=== PATIENT | female | born 2000 | race Caucasian/White ===

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

== ENCOUNTER 2023-05-05 07:39 | Inpatient (IN) | payer BC ==
[2023-05-05] MEDS ORDERED: CARBOPROST TROMETHAMINE 250 MCG/ML 1 ML AMP IM PRN (08:11)
[2023-05-05] MEDS ORDERED: OXYTOCIN 10 UNIT/ML 1 ML VIAL IM PRN (08:11)
[2023-05-05] MEDS ORDERED: METHYLERGONOVINE 0.2 MG/ML 1 ML AMP IM PRN (08:11)
[2023-05-05] MEDS ORDERED: LIDOCAINE 0.5% (PF) 5 MG/ML (50 ML SDV) SQ PRN (08:11)
[2023-05-05] MEDS ORDERED: TRANEXAMIC ACID IN NACL,ISO-OS 1,000 MG in EMPTY BAG 1 BAG IV PRN (08:11)
[2023-05-05] MEDS ORDERED: TERBUTALINE 1 MG/ML VIAL SQ PRN (08:11)
[2023-05-05] MEDS ORDERED: miSOPROStoL 200 MCG TAB PO PRN (08:11)
[2023-05-05] MEDS ORDERED: OXYTOCIN 30 UNITS/500 ML NS 30 UNIT in SALINE 1 500ML.BAG IV SCH ×2 (08:15→12:00)
[2023-05-05] MEDS ORDERED: LACTATED RINGERS 1,000 ML IV SCH (08:15)
[2023-05-05 08:52] LABS: Basophils % (A) 0 %; Eosinophils # (A) 0.1 k/uL (0-0.7); Eosinophils % (A) 1 %; HGB 12.8 gm/dL (11.4-16.0); Lymphocytes # (A) 1.9 k/uL (1.0-4.8); Lymphocytes % (A) 16 %; MCHC 33.6 g/dL (31.0-37.0); MCV 92.3 fL (80.0-100.0); Mean Platelet Volume 14.7; Monocytes # (A) 0.4 k/uL (0-1.0); Monocytes % (A) 3 %; Neutrophils % (A) 78 %; RBC 4.12 m/uL (3.80-5.40); RDW 13.4 % (11.5-15.5); WBC 11.5 k/uL (3.8-10.6)
[2023-05-05 09:11] LABS: ALT 15 U/L (4-34); AST 24 U/L (14-36); African American GFR (CKD) >90 (>60 ml/min/1.73 sqM); Blood Urea Nitrogen 9 mg/dL (7-17); LDH 192 U/L (120-246); Non-African American GFR(CKD) >90 (>60 ml/min/1.73 sqM); Uric Acid 4.3 mg/dL (3.7-7.4)
[2023-05-05 09:12] LABS: Appearance,Urine Clear (Clear); Bacteria,Urine Rare /hpf; Bilirubin,Urine Negative (Negative); Blood,Urine Large (Negative); Color,Urine Yellow; Glucose,Urine (UA) Negative (Negative); Ketones,Urine Negative (Negative); Leukocyte Esterase,Urine Trace (Negative); Mucus,Urine Rare /hpf; Nitrite,Urine Negative (Negative); PH, Urine 7.5 (5.0-8.0); Protein,Urine Trace (Negative); RBC,Urine 2 /hpf (0-5); Specific Gravity,Urine 1.016 (1.001-1.035); Squamous Epithelial Cell,Urine 2 /hpf (0-4); Urobilinogen,Urine <2.0 mg/dL (<2.0); WBC,Urine 3 /hpf (0-5)
[2023-05-05 09:27] LABS: Creatinine,Urine Random 91.4 mg/dL; Protein/Creatinine Ratio,Urine 0.164
[2023-05-05 09:42] LABS: Platelet Count 78 k/uL (150-450); RBC Morphology Normal
[2023-05-05 09:43] LABS: Large Platelets Present
[2023-05-05] MEDS ORDERED: NALBUPHINE 10 MG/ML (10 ML MDV) IV PRN (09:51)
[2023-05-05] MEDS ORDERED: SIMETHICONE 80 MG CHEWABLE PO PRN (11:52)
[2023-05-05] MEDS ORDERED: LANOLIN CREAM 5 GM TUBE TOPICAL PRN (11:52)
[2023-05-05] MEDS ORDERED: diphenhydrAMINE 25 MG CAP PO PRN (11:52)
[2023-05-05] MEDS ORDERED: diphenhydrAMINE 50 MG/ML 1 ML VIAL IVP PRN ×2 (11:52)
[2023-05-05] MEDS ORDERED: ACETAMINOPHEN ORAL SUSP 160 MG/5 ML CUP PO PRN (11:52)
[2023-05-05] MEDS ORDERED: diphenhydrAMINE 50 MG CAP PO PRN (11:52)
[2023-05-05] MEDS ORDERED: BENZOCAINE/MENTHOL SPRAY 1 GM/SPRAY AEROSOL TOPICAL PRN (11:52)
[2023-05-05] MEDS ORDERED: ZOLPIDEM 5 MG TAB PO PRN (11:52)
[2023-05-05] MEDS ORDERED: HYDROCORTISONE 2.5% RECTAL CREAM 30 GM TUBE RECTAL PRN (11:52)
[2023-05-05] MEDS: IBUPROFEN 600 MG TAB PO PRN ×2 (12:19→18:18)
--- NOTE | 2023-05-05 13:14 | P.HPOB ---
History of Present Illness H&P Date: 05/05/23 Chief Complaint: Contractions This is a 22-year-old female 2 para 0 with an estimated date of confinement of 05/07/2023, estimated gestational age of 39-5/7 weeks, who presented to labor and delivery with complaints of contractions that began a few hours prior to admission. She denies any rupture of membranes. She transferred her care to [facility] at approximately 32 weeks. She was receiving care at [facility] in [place] and had no problems with her care up until this point. She was using marijuana for her anxiety and depress ion and did stop using in approximately 2 weeks ago. labs: Blood type-A+ Antibody screen-negative Hepatitis B surface antigen-negative Hepatitis C-negative HIV-nonreactive RPR-nonreactive Rubella-immune Pap and cultures-negative Urine drug screen-positive for THC One hour Glucola-115, platelet count at this time was 126,000 NIPT-normal GBS-negative Obstetrical history: . History of 1 termination of . Gynecologic history: No history of sexual transmitted diseases. Social history: She is single. She is unemployed. Review of Systems Constitutional: Denies chills, Denies fever Eyes: denies blurred vision, denies pain Ears, nose, mouth and throat: Denies headache, Denies sore throat Cardiovascular: Denies chest pain, Denies shortness of breath Respiratory: Denies cough Gastrointestinal: Reports abdominal pain (Contractions) Genitourinary: Reports pelvic pain, Reports Musculoskeletal: Reports low back pain Integumentary: Denies pruritus, Denies rash Neurological: Denies numbness, Denies weakness Psychiatric: Reports anxiety, Reports depression Past Medical History Past Medical History: Asthma, GERD/Reflux Additional Past Medical History / Comment(s): 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 History of Any Multi-Drug Resistant Organisms: None Reported Additional Past Surgical History / Comment(s): Bone marrow biopsy Past Anesthesia/Blood Transfusion Reactions: No Reported Reaction Past Psychological History: Anxiety, Depression Smoking Status: Former smoker Past Alcohol Use History: None Reported Past Drug Use History: Marijuana - Past Family History Father Family Medical History: Hypertension Medications and Allergies Home Medications Medication Instructions Recorded Confirmed Type Famotidine [Pepcid] 20 mg PO DAILY 05/05/23 05/05/23 History Vit No.179/Iron/Folic 1 each PO DAILY 05/05/23 05/05/23 History [ Tablet] RX: Iron 18 mg PO DAILY 05/05/23 05/05/23 History Allergies Allergy/AdvReac Type Severity Reaction Status Date / Time peanut Allergy Anaphylaxis Verified 05/05/23 08:00 Exam Osteopathic Statement: *. No significant issues noted on an osteopathic structural exam other than those noted in the History and Physical/Consult. Vital Signs Temp Pulse Resp BP 05/05/23 11:43 100 18 126/61 05/05/23 08:10 97.0 F L 91 18 132/92 Intake and Output 05/04/23 05/05/23 05/05/23 22:59 06:59 14:59 Output Total 200 Balance -200 Output: Estimated Blood Loss 200 Other: # Voids 1 Weight 77.111 kg HEENT: Within normal limits Heart: Regular rate and rhythm Lungs: Clear to auscultation bilaterally Abdomen: Cervix: 5 cm/100%/-1 station with bulging bag. Artificial rupture membranes is carried out with clear fluid. heart tones: Category 1 Contractions: Every couple minutes External: Negative Homans Results Result Diagrams: 05/05/23 08:35 05/05/23 08:35 Abnormal Lab Results - Last 24 Hours (Table) 05/05/23 05/05/23 Range/Units 08:35 08:35 WBC 11.5 H (3.8-10.6) k/uL Plt Count 78 L (150-450) k/uL Neutrophils # 9.0 H (1.3-7.7) k/uL Urine Protein Trace H (Negative) Urine Blood Large H (Negative) Ur Leukocyte Esterase Trace H (Negative) Urine Bacteria Rare H (None) /hpf Urine Mucus Rare H (None) /hpf Assessment and Plan (1) 39 weeks gestation of Current Visit: Yes Status: Acute Code(s): Z3A.39 - 39 WEEKS GESTATION OF SNOMED Code(s): 43353714 Plan: Admission for active labor. Expectant management. Will obtain - induced hypertension labs due to slightly elevated blood pressures on admission.
--- NOTE | 2023-05-05 13:18 | P.PROBDLV ---
Vaginal Delivery Note - . Vaginal Delivery Note: The patient was admitted and underwent artificial rupture membranes with what appeared to be clear fluid at the time. -induced hypertension labs were ordered and were all normal other than her platelet count was 78,000. Therefore she was not able to get an epidural. She did use nitrous oxide. Labor progressed to complete dilation. She pushed involuntarily and rather precipitously delivered a viable female infant vaginally with tight nuchal cord times one doubly clamped and cut and removed around the 's head. Terminal meconium was noted. Infant was placed on mother's abdomen and brought to the warmer for evaluation. Nose and mouth were bulb suctioned. A viable female infant was noted with scores of 8 at 1 minute and 9 at 5 minutes and infant weight of 6 pounds 10.7 ounces. Placenta delivered shortly thereafter, intact, with a three-vessel cord. Meconium staining was noted. Uterus contracted fairly well after oxytocin was given and uterine massage was carried out. Inspection of the perineum revealed a second-degree perineal laceration and bilateral periurethral abrasions. The second-degree perineal laceration was anesthetized with 1% lidocaine and then sutured with 3-0 Vicryl suture in 2-0 Vicryl suture in the usual multilayer fashion. Estimated blood loss is approximately 200 mL's. Both mother and are in stable condition.
[2023-05-05 14:09] LABS: Amphetamine Screen,Urine Not Detected (NotDetected); Barbiturate Screen,Urine Not Detected (NotDetected); Benzodiazepines Screen,Urine Not Detected (NotDetected); Cocaine Screen,Urine Not Detected (NotDetected); Methadone Screen, Urine Not Detected (NotDetected); Opiate Screen,Urine Not Detected (NotDetected); Oxycodone Screen, Urine Not Detected (NotDetected); Phencyclidine Screen,Urine Not Detected (NotDetected); Tricyclic Antidepressant,Urine Not Detected (NotDetected)
[2023-05-05 14:10] LABS: Urn Cannabinoid Scrn Detected (NotDetected)
[2023-05-05] MEDS ORDERED: SENNOSIDES-DOCUSATE SODIUM 1 EACH TAB PO SCH (20:00)
[2023-05-06] MEDS: IBUPROFEN 600 MG TAB PO PRN (05:03)
[2023-05-06 05:12] VITALS: RESP 16; TEMP 97.8
[2023-05-06 07:07] LABS: Basophils % (A) 0 %; Eosinophils # (A) 0.1 k/uL (0-0.7); Eosinophils % (A) 0 %; HCT 31.2 % (34.0-46.0); HGB 10.4 gm/dL (11.4-16.0); Lymphocytes # (A) 1.8 k/uL (1.0-4.8); Lymphocytes % (A) 16 %; MCH 31.7 pg (25.0-35.0); MCHC 33.5 g/dL (31.0-37.0); MCV 94.7 fL (80.0-100.0); Mean Platelet Volume 13.7; Monocytes # (A) 0.4 k/uL (0-1.0); Monocytes % (A) 4 %; Neutrophils # (A) 8.8 k/uL (1.3-7.7); Neutrophils % (A) 79 %; RDW 13.4 % (11.5-15.5); WBC 11.2 k/uL (3.8-10.6)
[2023-05-06 07:10] LABS: Platelet Count 84 k/uL (150-450)
[2023-05-06 08:18] VITALS: BP 120/69; PULSE 98
--- NOTE | 2023-05-06 08:26 | P.DS ---
Providers Date of admission: 05/05/23 08:15 Expected date of discharge: 05/06/23 Attending physician: Breanna Roth Primary care physician: Stated None - Discharge Diagnosis(es) (1) 39 weeks gestation of Current Visit: Yes Status: Acute Hospital Course: This is a 22-year-old female 2 para 0 at 39-5/7 weeks who presented with active labor. She delivered vaginally a viable female infant with scores of 8 at 1 minute and 9 at 5 minutes and weight is 6 lbs. 10 oz. Her course has been uncomplicated. Lochia has been decreasing. Pain is fairly well controlled. She is breast-feeding. Vital signs are stable. Abdomen is soft with fundus firm and nontender. Extremities show negative Homans. Impression is status post vaginal delivery day #1. Plan is to discharge home later today. Routine instructions are given. She is advised to follow up in the office in 6 weeks for a check. She will be given a prescription for ibuprofen. She has a breast pump at home. She is advised to call the office is she has any further questions or concerns prior to her appointment time. Procedures: Oxytocin augmentation of labor Spontaneous vaginal delivery of a viable female infant on 05/05/2023 Patient Condition at Discharge: Stable Plan - Discharge Summary New Discharge Prescriptions: New Ibuprofen [Motrin] 600 mg PO Q6HR PRN #60 tab PRN Reason: Mild Pain (Scale 1 To 3) Continue Famotidine [Pepcid] 20 mg PO DAILY Vit No.179/Iron/Folic [ Tablet] 1 each PO DAILY No Action Iron 18 mg PO DAILY Discharge Medication List Famotidine [Pepcid] 20 mg PO DAILY 05/05/23 [History] Iron 18 mg PO DAILY 05/05/23 [History] Vit No.179/Iron/Folic [ Tablet] 1 each PO DAILY 05/05/23 [History] Ibuprofen [Motrin] 600 mg PO Q6HR PRN #60 tab 05/06/23 [Rx] Follow up Appointment(s)/Referral(s): Breanna Roth DO [Doctor of Osteopathic Medicine] - 6 Weeks Activity/Diet/Wound Care/Special Instructions: Instructions 1. Do not begin any exercise program for 3 weeks. 2. Do not resume sexual relations for 3 weeks or longer if uncomfortable. 3. You may take tub baths or showers at any time. 4. You may use tampons if desired after 3 weeks. 5. Keep the area of episiotomy (stitches) clean and dry. 6. If you are not nursing, wear a good fitting, supportive bra during the day and limit fluid intake for at least 1 week to prevent breast engorgement. 7. Call the office, [phone], within the next week to make appointment for your 6 week checkup if it has not already been made. 8. Report any of the following occurrences to the doctor promptly: a. Heavy, excessive bleeding b. Chills, fever c. Burning or frequency of urination d. Pain or redness and breasts if nursing e. Increasing pain or swelling in episiotomy (stitches). In addition to the above instructions, the following additional should be followed: 1. No heavy lifting or straining (exercising) until after 6 week checkup. 2. Keep abdominal incision clean and dry: You may wear a dressing if more comfortable. 3. Make office appointment for 10 days after going home or as instructed by her doctor. Discharge Disposition: HOME SELF-CARE
== END 2023-05-06 12:25 | disposition home or self-care (01) | DRG 807 ==
LOC: FBPOP 07:39 → 4FBP 08:15
PROVIDERS: ADMIT Obstetrics & Gynecology; ATTEND Obstetrics & Gynecology
PROC: 10E0XZZ Delivery of Products of Conception, External Approach (ICD-10-PCS; principal; 2023-05-05)
PROC: 10907ZC Drainage of Amniotic Fluid, Therapeutic from Products of Conception, Via Natural or Artificial Opening (ICD-10-PCS; principal; 2023-05-05)
PROC: 0KQM0ZZ Repair Perineum Muscle, Open Approach (ICD-10-PCS; principal; 2023-05-05)
DX: O13.4 Gestational [pregnancy-induced] hypertension without significant proteinuria, complicating childbirth (principal); Z37.0 Single live birth; Z3A.39 39 weeks gestation of pregnancy; O62.3 Precipitate labor; K21.9 Gastro-esophageal reflux disease without esophagitis; O69.1XX0 Labor and delivery complicated by cord around neck, with compression, not applicable or unspecified; O70.1 Second degree perineal laceration during delivery; O77.0 Labor and delivery complicated by meconium in amniotic fluid; O99.344 Other mental disorders complicating childbirth; O99.62 Diseases of the digestive system complicating childbirth; O99.52 Diseases of the respiratory system complicating childbirth; F32.A Depression, unspecified; F41.9 Anxiety disorder, unspecified; J45.909 Unspecified asthma, uncomplicated; Z87.891 Personal history of nicotine dependence; O99.324 Drug use complicating childbirth; F12.90 Cannabis use, unspecified, uncomplicated; D69.6 Thrombocytopenia, unspecified; Z56.0 Unemployment, unspecified; Z28.310 Unvaccinated for COVID-19; Z28.21 Immunization not carried out because of patient refusal; Z91.010 Allergy to peanuts
CPT/HCPCS: 59025; 80306; 81001; 82565; 82570; 83615; 84156; 84450; 84460; 84520; 84550; 85025; 86850; 86900; 86901; 99213

== ENCOUNTER → 2024-04-07 | Outpatient (CLI) | payer BC ==
[2024-04-07 15:33] LABS: ALT 17 U/L (8-44); AST 18 U/L (13-35); Albumin 4.8 g/dL (3.8-4.9); Albumin/Globulin Ratio 2.18 Ratio (1.60-3.17); Alkaline Phosphatase 67 U/L (41-126); Blood Urea Nitrogen 11.9 mg/dL (9.0-27.0); Calcium 9.8 mg/dL (8.7-10.3); Chloride 106 mmol/L (96-109); Globulin 2.2 g/dL (1.6-3.3); Glucose 98 mg/dL (70-110); Potassium 4.6 mmol/L (3.5-5.5); Sodium 141 mmol/L (135-145); Total Bilirubin 0.6 mg/dL (0.3-1.2)
[2024-04-07 16:24] LABS: Basophils # (A) 0.03 X 10*3/uL (0.00-0.10); Basophils % (A) 0.5 %; Eosinophils # (A) 0.13 X 10*3/uL (0.04-0.35); Eosinophils % (A) 2.2 %; HCT 38.9 % (37.2-46.3); HGB 12.5 g/dL (12.0-15.0); Lymphocytes # (A) 1.62 X 10*3/uL (0.90-5.00); MCH 29.6 pg (27.0-32.0); MCHC 32.1 g/dL (32.0-37.0); Mean Platelet Volume 12.4 FL (9.5-12.2); Monocytes # (A) 0.44 X 10*3/uL (0.20-1.00); Monocytes % (A) 7.3 %; NRBC Per 100 WBC 0 X 10*3/uL (0.00-0.01); Neutrophils # (A) 3.77 X 10*3/uL (1.80-7.70); Neutrophils % (A) 62.7 %; Platelet Count 185 X 10*3/uL (140-440); RBC 4.23 X 10*6/uL (4.10-5.20); WBC 6.01 X 10*3/uL (4.50-10.00)
--- NOTE | 2024-04-08 07:58 | US ---
EXAMINATION TYPE: US pelvis complete transvag DATE OF EXAM: 04/07/2024 COMPARISON: 07/16/2018 CLINICAL INDICATION: Female, 23 years old with history of N92.1EXCESSIVE AND FREQUENT MENSTRUATION WI TH IRRE; Hx of control shot and pill. Started pill control in september and discontinued a few months ago. Consistent heavy bleeding or spotting since september with pelvic/abdominal pain; ; TECHNIQUE: Transabdominal sonographic images of the pelvis were acquired. Transvaginal sonographi c images were medically necessary to better assess the following anatomy: ovaries Date of LMP: unknown due to AUB EXAM MEASUREMENTS: Uterus: 5.9 x 3.5 x 5.3 cm Endometrial Stripe: 0.3 cm Right Ovary: 3.2 x 2.2 x 2.7 cm Left Ovary: 2.7 x 2.2 x 2.3 cm 1. Uterus: Anteverted wnl 2. Endometrium: wnl 3. Right Ovary: wnl 4. Left Ovary: wnl 5. Bilateral Adnexa: wnl 6. Posterior cul-de-sac: wnl IMPRESSION: No significant abnormality of the uterus or adnexa.
== END | disposition home or self-care (01) ==
LOC: RADUSWWP 07:26
PROVIDERS: ATTEND Family Medicine
DX: N92.1 Excessive and frequent menstruation with irregular cycle (principal); R10.30 Lower abdominal pain, unspecified
CPT/HCPCS: 76830; 76856; 80053; 85025

== ENCOUNTER → 2024-07-30 | Outpatient (CLI) | payer BC ==
[2024-08-02 14:36] LABS: Almond IgE <0.10 kU/L (<0.10); Almond IgE Class CLASS 0; Brazil Nut IgE <0.10 kU/L (<0.10); Brazil Nut IgE Class CLASS 0; Cashew IgE <0.10 kU/L (<0.10); Cashew IgE Class CLASS 0; Hazelnut IgE <0.10 kU/L (<0.10); Hazelnut IgE Class CLASS 0; Macadamia Nut IgE <0.10 kU/L (<0.10); Macadamia Nut IgE Class CLASS 0; Peanut IgE 1.54 kU/L (<0.10); Pecan IgE <0.10 kU/L (<0.10); Pecan IgE Class CLASS 0; Pine Nut, Pignoles IgE <0.10 kU/L (<0.10); Pine Nut, Pignoles IgE Class CLASS 0; Pistachio IgE Class CLASS 0; Sweet Chestnut IgE <0.10 kU/L (<0.10); Sweet Chestnut IgE Class CLASS 0; Walnut (Food) IgE Class CLASS 0; Walnut IgE (Food) <0.10 kU/L (<0.10)
== END ==
LOC: LABWHC1 08:37
PROVIDERS: ATTEND Family Medicine
DX: Z91.018 Allergy to other foods (principal)
CPT/HCPCS: 36415; 82785; 86003